=== PATIENT | female | born 1985 | race Caucasian/White ===

== ENCOUNTER 2023-10-04 14:42 | Emergency (ER) | payer OTHER, SELFPAY ==
--- NOTE | ~2023-10-04 | XR_ITS ---
XR hand RT min 3V Ordering provider: Booker Sullivan MD History: . injury . Comparison: None. FINDINGS: BONES: No acute fracture or dislocation. JOINT SPACES: Normal. SOFT TISSUES: Normal. IMPRESSION: No acute osseous abnormality right hand. Reviewed, dictated and finalized at location A.
[2023-10-04 15:13] VITALS: BP 148/87; PULSE 91; RESP 16; TEMP 36.4; O2SAT 99
[2023-10-04] MEDS: HYDROcodone/acetaminophen (*CRX) 5-325 MG TABLET 1 TAB PO (15:38)
--- NOTE | 2023-10-04 16:03 | ED.UPPEXIN ---
HPI - Extremity Injury (Upper) General Chief Complaint: Extremity Injury, Upper Stated Complaint: R hand pain after punching a wall, requesting xray Time Seen by Provider: 10/04/23 15:13 History of Present Illness HPI narrative: This is a 38-year-old female with no pertinent past medical history who presents with right hand pain after punching a wall 2 days prior. She has been taking Naprosyn at home which alleviated her pain but she is concerned that she might have broken something is requesting an x-ray. She has some pain in her index and middle finger. Minor skin avulsion without any active oozing of blood or purulence. Did not seek medical attention after the incident. Denies any other symptoms at this time. Related Data Allergies Allergy/AdvReac Type Severity Reaction Status Date / Time No Known Allergies Allergy Verified 10/04/23 14:43 Review of Systems Review of Systems: As dictated above in the HPI Exam Narrative: GENERAL: [Well-appearing, well-nourished, and in no acute distress.] HEAD: [Normocephalic, atraumatic.] EYES: [PERRLA and EOMI.] ENT: Nares clear, no rhinorrhea or epistaxis. Mucous membranes moist. NECK: Supple. CHEST: [Clear to auscultation. No respiratory distress.] HEART: [Regular rate and rhythm]. No murmur heard. [Normal peripheral pulses.] ABDOMEN: [Soft, nondistended], [nontender], [No rigidity or guarding] EXTREMITIES: Full range of motion of each major joint in the right hand, able to flex and extend at the MCP, PIP and D IP. Able to oppose each digit. Some minor skin avulsion on the dorsal aspect PIP joint without any active bleeding or erythema, purulence. No tenderness over the wrist, no snuffbox tenderness. SKIN: Warm, dry, no rash. NEURO: [No focal deficits]. Alert and oriented [x3.] PSYCH: [Normal mood and affect.] Course Vital Signs Vital signs: Vital Signs Temperature 36.4 C 10/04/23 15:13 Pulse Rate 91 10/04/23 15:13 Respiratory Rate 16 10/04/23 15:13 Blood Pressure 148/87 H 10/04/23 15:13 Pulse Oximetry 99 10/04/23 15:13 Oxygen Delivery Room Air 10/04/23 15:13 Temperature 36.4 C 10/04/23 15:13 Pulse Rate 91 10/04/23 15:13 Respiratory Rate 16 10/04/23 15:13 Blood Pressure 148/87 H 10/04/23 15:13 Pulse Oximetry 99 10/04/23 15:13 Oxygen Delivery Room Air 10/04/23 15:13 MDM - Extremity Injury (Upper) MDM Narrative Medical decision making narrative: This is a 38-year-old female who punched a wall. She otherwise has normal reassuring vital signs and normal examination. She has full range of motion of all her major joint lines and has no acute osseous process seen on her x-ray. She has been taking Naprosyn home which did alleviate her symptoms. She is stable for discharge home at this time with regular p.o. analgesia medications [id number]. She was provided [place] here prior to discharge. Discharge Plan Discharge Clinical Impression: Sprain and strain of wrist, Hand pain Patient Disposition: Home, Self-Care Condition: Stable Instructions: Antibiotic Form, Laceration (ED), Arthralgia (ED) Prescriptions: New acetaminophen [Tylenol Extra Strength] 500 mg tablet 1,000 mg PO Q6H PRN (Reason: pain) Qty: 30 0RF Follow-up/Referrals: UNKNOWN,DOCTOR [Primary Care Provider] - Time of Disposition: 16:06
== END 2023-10-04 16:54 | disposition home or self-care (01) ==
PROVIDERS: Emergency Provider Student in an Organized Health Care Education/Training Program
DX: S63.501A Unspecified sprain of right wrist, initial encounter (principal); S66.911A Strain of unspecified muscle, fascia and tendon at wrist and hand level, right hand, initial encounter; M79.641 Pain in right hand; W22.09XA Striking against other stationary object, initial encounter
CPT/HCPCS: 73130; 99283; A9270